=== PATIENT | male | born 1970 | race Caucasian/White ===

== ENCOUNTER 2019-08-14 18:47 | Emergency (ER) | payer MEDICAID, OTHER ==
--- NOTE | 2019-08-14 19:02 | ERPHSYRPT ---
- History of Present Illness Time Seen by Provider: 08/14/19 18:53 Source: patient Exam Limitations: no limitations Physician History: Reportedly EMS states pt was confused at home and is here for evaluation. pt denies fever, chest pain, shortness of air, sore throat, nausea, abdominal pain. Pt denies pain anywhere. Allergies/Adverse Reactions: No Known Drug Allergies Allergy (Unverified 08/14/19 19:14) Travel Risk - International Travel Have you traveled outside of the country in past 3 weeks: No Have you or anyone close to you been diagnosed with or: No Do your reside in a community with a known COVID-19 case?: Yes If Yes where:: [place], [place] - Coronavirus Screening Has patient experienced Coronavirus symptoms: No - Review of Systems Constitutional: No Fever Ears, Nose, & Throat: No Throat Pain Respiratory: No Cough, No Dyspnea Cardiac: No Chest Pain Abdominal/Gastrointestinal: No Abdominal Pain, No Nausea, No Vomiting, No Diarrhea Skin: No Rash Neurological: No Headache All Other Systems: Reviewed and Negative - Nursing Vital Signs Nursing Vital Signs: Initial Vital Signs Temperature 98.3 F 08/14/19 18:56 Pulse Rate 84 08/14/19 18:56 Respiratory Rate 15 08/14/19 18:56 Blood Pressure 175/105 08/14/19 18:56 O2 Sat by Pulse Oximetry 100 08/14/19 18:56 Pain Scale Pain Intensity 0 - Physical Exam General Appearance: alert Eye Exam: PERRL/EOMI Ears, Nose, Throat Exam: TMs normal, pharynx normal, moist mucous membranes Neck Exam: normal inspection Respiratory Exam: lungs clear Cardiovascular Exam: normal heart sounds Gastrointestinal/Abdomen Exam: soft, normal bowel sounds Back Exam: normal inspection, normal range of motion Extremity Exam: normal range of motion, No pedal edema Neurologic Exam: alert, oriented x 3, cooperative, sensation nml, No motor deficits Skin Exam: warm, dry SpO2 Interpretation: normal SpO2: 100 O2 Delivery: Room Air - Course Nursing assessment & vital signs reviewed: Yes Ordered Tests: Active Orders 24 hr Category Date Time Status UA W/RFX UR CULTURE Stat Lab 08/14/19 19:08 Completed Urine Triage Profile Stat Lab 08/14/19 19:08 Completed Lab/Rad Data: Laboratory Results 03/26/20 03/26/20 Range/Units 19:08 19:08 Urine Color STRAW (YELLOW) Urine Appearance CLEAR (CLEAR) Urine pH 6.0 (5-6) Ur Specific [place] 1.004 (1.005-1.025) Urine Protein NEGATIVE (Negative) Urine Ketones NEGATIVE (NEGATIVE) Urine Blood MODERATE (0-5) Matthew/ul Urine Nitrite NEGATIVE (NEGATIVE) Urine Bilirubin NEGATIVE (NEGATIVE) Urine Urobilinogen NEGATIVE (0-1) mg/dL Ur Leukocyte Esterase NEGATIVE (NEGATIVE) Urine WBC (Auto) 0-2 (0-5) /HPF Urine RBC (Auto) NONE (0-2) /HPF U Epithel Cells (Auto) NONE (FEW) /HPF Urine Bacteria (Auto) NONE SEEN (NEGATIVE) /HPF Urine Mucus (Auto) SLIGHT (NEGATIVE) /HPF Urine Culture Reflexed NO (NO) Urine Glucose NEGATIVE (NEGATIVE) mg/dL Urine Opiates Level NEGATIVE (NEGATIVE) Ur Methadone NEGATIVE (NEGATIVE) Urine Barbiturates NEGATIVE (NEGATIVE) Ur Phencyclidine (PCP) NEGATIVE (NEGATIVE) Urine Amphetamine POSITIVE (NEGATIVE) U Benzodiazepine Level NEGATIVE (NEGATIVE) Urine Cocaine NEGATIVE (NEGATIVE) Urine Marijuana (THC) POSITIVE (NEGATIVE) - Progress Progress: unchanged Progress Note: 08/14/19 19:28 Pt refuses all lab draws; will allow urine testing. Counseled pt/family regarding: lab results - Departure Departure Disposition: Home Clinical Impression: HTN (hypertension), Amphetamine and THC use. Condition: Stable Critical Care Time: No Referrals: XIMENA LOYA [Primary Care Provider] - Instructions: Polysubstance Abuse (DC) Additional Instructions: Follow up with private doctor tomorrow. Avoid amphetamine and marijuana.
[2019-08-14 19:14] LABS: Appearance CLEAR (CLEAR); Bilirubin NEGATIVE (NEGATIVE); Blood MODERATE Ery/ul (0-5); Glucose NEGATIVE (NEGATIVE); Ketones NEGATIVE (NEGATIVE); Leukocyte Esterase NEGATIVE (NEGATIVE); Mucus SLIGHT /HPF (NEGATIVE); Nitrite NEGATIVE (NEGATIVE); Protein,Urine Dip NEGATIVE (Negative); Specific Gravity 1.004 (1.005-1.025); Urobilinogen NEGATIVE mg/dL (0-1); WBC 0-2 /HPF (0-5)
[2019-08-14 19:18] LABS: Bacteria NONE SEEN /HPF (NEGATIVE)
[2019-08-14 19:27] LABS: Barbiturate,Urine NEGATIVE (NEGATIVE); Benzodiazepine,Urine NEGATIVE (NEGATIVE); Cocaine,Urine NEGATIVE (NEGATIVE); Methadone,Urine NEGATIVE (NEGATIVE); Opiate,Urine NEGATIVE (NEGATIVE); PCP,Urine NEGATIVE (NEGATIVE); THC,Urine POSITIVE (NEGATIVE)
[2019-08-14 19:51] VITALS: O2SAT 100
[2019-08-14 19:53] LABS: Amphetamine,Urine POSITIVE (NEGATIVE)
[2019-08-14 19:56] VITALS: BP 161/81; PULSE 87
== END 2019-08-14 19:58 | disposition home or self-care (01) ==
LOC: ED 18:47
DX: I10 Essential (primary) hypertension (principal); F15.90 Other stimulant use, unspecified, uncomplicated; F12.90 Cannabis use, unspecified, uncomplicated
CPT/HCPCS: 80307; 81001; 99283

== ENCOUNTER 2019-08-21 12:14 | Emergency (ER) | payer MEDICAID ==
[2019-08-21 12:30] VITALS: O2SAT 100
--- NOTE | 2019-08-21 12:52 | ERPHSYRPT ---
- History of Present Illness Time Seen by Provider: 08/21/19 12:41 Source: patient, EMS Patient Subjective Stated Complaint: Pt brought to the ER by EMS and they stated that he was caught stealing from [employer] and he ran out of the building and was by [employer] when he fell and hit his head, EMS stated that pt wouldn't/couldn't answer any questions correctly and was acting as if he was high on meth. Pt states that he and his cousin Gilbert were running around a corner when he thought he got hit by something in his face and fell and hit his head on the concrete, pt states that he doesn't remember being at [employer] Triage Nursing Assessment: Pt brought to the ER via EMS, pt oriented to place, not day, or president, no visible markings or hematomas on back of pt's head, no visible markings on body, vitals wnl, denies pain, pt appears calm and sleepy , no difficulties with strength, PERRL Physician History: 49 years old is brought in the ER by EMS with chief complaint of altered mental status/confusion. As per report patient was caught stealing stuff from [employer], was running and fell hit his head against the concrete. After that patient was not acting himself. Patient did not remember what happened to him. Patient was not talking with EMS. On arrival in the ER patient was talking to the nurse but was not fully oriented. When I talked to the patient he was fully oriented and not in any distress. Although he could not recall that he fell but denies any headache or bump on the head or facial injury. Moving all 4 extremities is not complaining of pain anywhere else. Was concerned that patient might have meth on board. Timing/Duration: today, sudden, improved Severity: mild, moderate Allergies/Adverse Reactions: No Known Drug Allergies Allergy (Verified 08/21/19 12:32) Home Medications: No Reportable Medications [No Reported Medications] 08/21/19 [History] Hx Tetanus, Diphtheria Vaccination/Date Given: No Hx Influenza Vaccination/Date Given: No Hx Pneumococcal Vaccination/Date Given: No Travel Risk - International Travel Have you traveled outside of the country in past 3 weeks: No Have you or anyone close to you been diagnosed with or: No Do your reside in a community with a known COVID-19 case?: Yes If Yes where:: [facility] - Coronavirus Screening Has patient experienced Coronavirus symptoms: No - Review of Systems Constitutional: No Symptoms Eyes: No Symptoms Ears, Nose, & Throat: No Symptoms Respiratory: No Symptoms Cardiac: No Symptoms Abdominal/Gastrointestinal: No Symptoms Genitourinary Symptoms: No Symptoms Musculoskeletal: No Symptoms Skin: No Symptoms Endocrine: No Symptoms Hematologic/Lymphatic: No Symptoms Immunological/Allergic: No Symptoms - Past Medical History Pertinent Past Medical History: Yes GI Medical History: GERD, Hernia Other Medical History: cat scratch fever - Past Surgical History Past Surgical History: No - Social History Smoking Status: Current every day smoker How long have you smoked: 40 years Exposure to second hand smoke: Yes Drug Use: marijuana Patient Lives Alone: Yes - Nursing Vital Signs Nursing Vital Signs: Initial Vital Signs Temperature 98.7 F 08/21/19 12:17 Pulse Rate 72 08/21/19 12:17 Blood Pressure 144/85 08/21/19 12:17 O2 Sat by Pulse Oximetry 100 08/21/19 12:17 Pain Scale Pain Intensity 0 - Physical Exam General Appearance: no apparent distress, alert Eye Exam: PERRL/EOMI, eyes nml inspection Ears, Nose, Throat Exam: normal ENT inspection, TMs normal, pharynx normal Neck Exam: normal inspection, non-tender, supple, full range of motion Respiratory Exam: normal breath sounds, lungs clear Cardiovascular Exam: regular rate/rhythm, normal heart sounds, normal peripheral pulses Gastrointestinal/Abdomen Exam: soft, normal bowel sounds, No tenderness Back Exam: normal inspection, normal range of motion, No CVA tenderness Extremity Exam: normal inspection, normal range of motion, pelvis stable Neurologic Exam: alert, oriented x 3, cooperative, 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 Patient was constantly changing statements to every person. On my evaluation patient was not confused but he denied that he knows anything about the fall but had no focal neuro symptoms. I have obtained CT head which is done but patient walked out of the ER without telling anyone. CT came back negative. There is some element of getting away from being charge for stealing. Patient walked out in a stable condition. - Departure Departure Disposition: AMA Clinical Impression: Transient confusion Condition: Stable Critical Care Time: No Referrals: XIMENA LOYA [Primary Care Provider] -
[2019-08-21 13:19] VITALS: BP 153/90; PULSE 79
--- NOTE | 2019-08-21 13:21 | XRAY ---
Indication: Confusion following head injury from fall. Multiple contiguous axial images obtained through the head without contrast. Comparison: April 10, 2006. Normal appearing brain parenchyma, ventricles, and bony calvarium. Visualized paranasal sinuses and mastoid air cells are clear. Impression: Normal CT head without contrast exam.
== END 2019-08-21 13:00 | disposition left against medical advice (07) ==
LOC: ED 12:14
DX: R41.0 Disorientation, unspecified (principal)
CPT/HCPCS: 70450; 99283

== ENCOUNTER 2019-08-26 20:48 | Emergency (ER) | payer MEDICAID, OTHER ==
--- NOTE | 2019-08-26 21:33 | ERPHSYRPT ---
- History of Present Illness Time Seen by Provider: 08/26/19 21:23 Source: patient Exam Limitations: no limitations Patient Subjective Stated Complaint: pt states came in via police, police states that pt was trying break into a car with a kid and woman in it, police states that he needs pt medically cleared Triage Nursing Assessment: pt is axo 1, pt is erratic behavior, tearful, yelling out, yelling out different peoples, pt not aware of surrounds, lung sounds clear, pupils 3 mm PERRL, abdomen soft, active bowel sounds Physician History: Pt is here for medical clearance for senior living. pt denies chest pain, shortness of air, fever, abdominal pain. Allergies/Adverse Reactions: No Known Drug Allergies Allergy (Verified 08/21/19 12:32) Home Medications: No Reportable Medications [No Reported Medications] 08/21/19 [History] Hx Tetanus, Diphtheria Vaccination/Date Given: No Hx Influenza Vaccination/Date Given: No Hx Pneumococcal Vaccination/Date Given: No Travel Risk - International Travel Have you traveled outside of the country in past 3 weeks: No Have you or anyone close to you been diagnosed with or: No Do your reside in a community with a known COVID-19 case?: Yes If Yes where:: [place] - Coronavirus Screening Has patient experienced Coronavirus symptoms: No - Review of Systems Constitutional: No Fever, No Chills Ears, Nose, & Throat: No Ear Pain, No Throat Pain Respiratory: No Dyspnea Cardiac: No Chest Pain Abdominal/Gastrointestinal: No Abdominal Pain, No Nausea, No Vomiting Genitourinary Symptoms: No Dysuria All Other Systems: Reviewed and Negative - Past Medical History Pertinent Past Medical History: Yes GI Medical History: GERD, Hernia Other Medical History: cat scratch fever - Past Surgical History Past Surgical History: No - Social History Smoking Status: Current every day smoker How long have you smoked: 40 years Exposure to second hand smoke: Yes Drug Use: marijuana, bath salts, methamphetamines Patient Lives Alone: Yes - Nursing Vital Signs Nursing Vital Signs: Initial Vital Signs Temperature 98.1 F 08/26/19 20:52 Pulse Rate 96 H 08/26/19 20:52 Respiratory Rate 19 08/26/19 20:52 Blood Pressure 143/86 08/26/19 20:52 O2 Sat by Pulse Oximetry 99 08/26/19 20:52 - Physical Exam General Appearance: alert Eye Exam: PERRL/EOMI Ears, Nose, Throat Exam: pharynx normal, moist mucous membranes Neck Exam: normal inspection Respiratory Exam: normal breath sounds Cardiovascular Exam: normal heart sounds Gastrointestinal/Abdomen Exam: normal bowel sounds Extremity Exam: No pedal edema Neurologic Exam: alert, oriented x 3 (pt knows where he is, who the president is and what day of the week it is.), cooperative Skin Exam: No cyanosis SpO2 Interpretation: normal SpO2: 99 O2 Delivery: Room Air - Course Nursing assessment & vital signs reviewed: Yes Ordered Tests: Active Orders 24 hr Category Date Time Status Isolation, Initiate & Maintain Q4 Care 08/26/19 21:22 Active - Progress Progress: unchanged - Departure Departure Disposition: Custodial/[facility] Clinical Impression: Medical clearance for incarceration Condition: Stable Critical Care Time: No Referrals: XIMENA LOYA [Primary Care Provider] -
[2019-08-26 21:58] VITALS: BP 103/60; PULSE 80; O2SAT 97
== END 2019-08-26 21:59 ==
LOC: ED 20:48
DX: Z02.89 Encounter for other administrative examinations (principal)
CPT/HCPCS: 99283